=== PATIENT | male | born 1950 | race Caucasian/White ===

== ENCOUNTER → 2023-10-09 10:22 | Outpatient (REF) | payer OTHER, SELFPAY | LOC: HWRAD 10:22 | PROVIDERS: ATTENDING PHYSICIAN Family Medicine | DX: Z87.891 Personal history of nicotine dependence (principal) | CPT/HCPCS: 76770 ==

== ENCOUNTER 2024-03-22 09:29 | Emergency (ER) | payer OTHER, SELFPAY ==
[2024-03-22 09:32] VITALS: BP 127/73
--- NOTE | 2024-03-22 10:43 | ED.GENMED ---
History of Present Illness
<Debi Phelan PA-C - Last Filed: 03/23/24 12:02>
General
Chief Complaint: Swelling
Source: patient
Exam Limitations: none
Time Seen by Provider: 03/22/24 10:22
Nursing documentation reviewed up to this point in time: agreed with
History of Present Illness
History of Present Illness:
Patient is a 73 year old male with history hypertension, hyperlipidemia, diabetes presenting to the emergency department with left wrist pain for the past 3 days. Patient states that he was lifting heavy objects and moving things around on Thursday
in his garage and then began with wrist pain on Thursday night. He describes a relatively constant pain in his left wrist and left hand that is worse with movement and gradually worsening since onset. He denies any numbness/tingling in left hand or
digits.
Patient denies any associated fever, chills, nausea/vomiting. He states he otherwise feels well.
His was concerned about a possible infection.
Patient denies any history of gout.
Past History
<Debi Phelan PA-C - Last Filed: 03/23/24 12:02>
Past History
ED Past Medical History: HTN, Hypercholesterolemia and NIDDM (diet controlled)
ED Past Surgical History: Orthopedic and Tonsilectomy
Social History
Tobacco: Former smoker
Alcohol: None
Drug: None
Personal:
Living: with family
Review of Systems
<Debi Phelan PA-C - Last Filed: 03/23/24 12:02>
Review of Systems
Allergies reviewed?: Yes
All Other Systems: ROS reviewed and negative except as documented in HPI and ROS
Phy Exam
<Debi Phelan PA-C - Last Filed: 03/23/24 12:02>
Physical Exam
Physical Exam:
Vitals: Patient's vital signs are stable. Afebrile
General: Patient is well appearing, no acute distress. Nontoxic appearing.
Skin: Erythema and mild edema of left wrist at dorsal aspect - appears to be surrounding mild healing abrasion.
Head: Normocephalic, atraumatic
Eyes: Sclera nonicteric. EOMs intact. No nystagmus.
Throat: Protecting airway
Neck: Normal ROM, no cervical spine tenderness, no meningismus
Cardiac: Regular rate and rhythm, no murmurs.
Pulm: Normal respiratory effort, no wheezes, rales, rhonchi heard on exam.
Abdomen: No abdominal tenderness.
Extremities: Erythema and mild edema of left dorsal wrist. No induration of fluctuance. Patient has full ROM in left wrist with minimal pain. Palpable left radial pulse.
Neuro: AAOx3. Grossly intact.
Psychiatric: Normal affect.
Scores
<Debi Phelan PA-C - Last Filed: 03/23/24 12:02>
Heart Failure Risk
Heart Failure Risk Score: Not Applicable
Course
<Debi Phelan PA-C - Last Filed: 03/23/24 12:02>
Orders/Labs/Results
Orders:
Orders
03/22/24 09:35
Wrist, Left 3 Views CR [CR Wrist - Left Min 3 Views] Urgent
Comment:
Reason For Exam: pain and swelling
03/22/24 10:33
Hand, Left 3 View [CR Hand - Left Min 3 Views] Urgent
Comment:
Reason For Exam: atraumatic left hand pain/swelling
03/22/24 11:21
Amoxicillin 875 mg/Clav 125 mg [Augmentin 875 mg/125 mg] 1 tablet PO NOW STA
Doxycycline [Vibramycin] 100 mg PO NOW STA
03/22/24 11:22
Bedside Glucose- Treatment ONCE
Vital Signs
Initial and Last Documented VS:
Initial Vital Signs
Temp Pulse Resp BP Pulse Ox
98.2 F 89 18 127/73 96
03/22/24 09:32 03/22/24 09:32 03/22/24 09:32 03/22/24 09:32 03/22/24 09:32
Last Documented Vital Signs
Temp Pulse Resp BP Pulse Ox
98.3 F 80 16 115/72 98
03/22/24 11:51 03/22/24 11:51 03/22/24 11:51 03/22/24 11:51 03/22/24 11:51
<Rivas Harris MD - Last Filed: 03/22/24 11:29>
Orders/Labs/Results
Orders:
Orders
03/22/24 09:35
Wrist, Left 3 Views CR [CR Wrist - Left Min 3 Views] Urgent
Comment:
Reason For Exam: pain and swelling
03/22/24 10:33
Hand, Left 3 View [CR Hand - Left Min 3 Views] Urgent
Comment:
Reason For Exam: atraumatic left hand pain/swelling
03/22/24 11:21
Amoxicillin 875 mg/Clav 125 mg [Augmentin 875 mg/125 mg] 1 tablet PO NOW STA
Doxycycline [Vibramycin] 100 mg PO NOW STA
03/22/24 11:22
Bedside Glucose- Treatment ONCE
Vital Signs
Initial and Last Documented VS:
Initial Vital Signs
Temp Pulse Resp BP Pulse Ox
98.2 F 89 18 127/73 96
03/22/24 09:32 03/22/24 09:32 03/22/24 09:32 03/22/24 09:32 03/22/24 09:32
Last Documented Vital Signs
Temp Pulse Resp BP Pulse Ox
98.3 F 80 16 115/72 98
03/22/24 11:51 03/22/24 11:51 03/22/24 11:51 03/22/24 11:51 03/22/24 11:51
<Debi Phelan PA-C - Last Filed: 03/23/24 12:02>
MDM/Problems Addressed
Differential Diagnosis Includes:
Not limited to: cellulitis, inflammatory arthritis, septic arthritis, wrist sprain, doutb wrist fracture
MDM/Problems Addressed:
73 year old male with erythema and swelling of left dorsal wrist associated with mild pain. No fevers or chills. No known inciting injury. Vitals stable - patient afebrile. Physical exam as above. Xrays without any evidence of acute fracture.
Ultimately suspect cellulitis of left wrist. Feel septic arthritis is less likely given patient has full ROM and only very minimal pain. Did consider arthrocentesis although concern for introducing bacteria into joint space through clearly
cellulitic skin. POC glucose obtained and normal. Will start PO abx and give patient very close return precautions. Patient seen with attending physician.
Chronic conditions affecting care:
DM
Chronic conditions affecting care: DM
Acute Exacerbation and/or Progression of Chronic Illness:
N/A
<Debi Phelan PA-C - Last Filed: 03/23/24 12:02>
*Radiology
Radiology exam reviewed: preliminary read by ED provider (Xrays reviewed by me - no acute fracture)
*Pulse Oximetry
Patient hypoxic: no
*EKG
Interpreted by ED Provider?: NA
*Director Of Agriculture Interpretation
Rate: Director Of Agriculture- N/A
*Critical Care Note
Total Time (30-74mins, 75-104mins- exclusive of procedures): Not Applicable
ED Attending Note
<Debi Phelan PA-C - Last Filed: 03/23/24 12:02>
-
Portions of this chart may have been created with voice recognition software.� Occasional wrong word or��sound alike� substitutions may have occurred due to the inherent limitations of voice recognition software.
<Rivas Harris MD - Last Filed: 03/22/24 11:29>
ED Attending Note
Patient seen and examined by attending physician: Yes
ED Attending Note:
I have seen and evaluated the patient with a [id number] encounter. I have spoken to the advance practicer provider and involved in the medical history, the physical exam, medical decision making.
Evaluation and management service: agree unless noted differently below.
Results interpretation: agree unless noted differently below.
Focused HPI: 73-year-old male with history as documented notable for diabetes presents to the ER for evaluation of left forearm/wrist pain. Patient reports he was moving boxes on Thursday and he thinks he may have scraped his wrist he has a minor
abrasion on the distal forearm. He says that he started to have some redness the next day and then started to have pain yesterday and decided to come to the ER for evaluation. He says pain is most with palpation although he does have some pain
with range of motion. He denies any other complaints including fever or chills.
Physical exam: Awake alert no distress. Vital signs normal. Patient has erythema starting at the distal one third of the forearm it does extend towards the dorsum of the hand; he has a minor abrasion on the ulnar side of the distal forearm as well
as a minor abrasion on the dorsum of the hand; the area is warm and tender to the touch but no fluctuance or crepitus appreciated. He does not have a strong radial pulse. He does have full active range of motion of the right wrist with only mild
pain.
Medical Decision Makin-year-old male with history of diabetes presents with redness and swelling on the dorsum of the forearm/wrist on the left. Suspect that this is an acute cellulitis. Considered possibility of a septic arthritis but
patient's range of motion of the wrist is quite good and he has essentially minimal pain�very low suspicion for a septic arthritis clinically and I think that the risk of arthrocentesis through clearly cellulitic skin outweighs any diagnostic
benefit. Spoke to the patient and he agrees, we will start antibiotics. Very low threshold for return�skin was marked and patient understands that if he is worsening or symptoms are not improving after 2 to 3 days of antibiotics he needs to return
immediately. All questions answered.
Discharge Plan
Departure
Patient Disposition: Home (Routine Discharge)
Date of Disposition: 03/22/24
Time of Disposition:
Patient with high blood pressure during this ER visit?: No
Discharge Problem:
Cellulitis of forearm, left
Instructions: Cellulitis (skin infection) in adults - ED discharge instructions
Prescriptions:
New
amoxicillin-pot clavulanate 875-125 mg tablet
1 tab PO BID Qty: 14 0RF
doxycycline hyclate 100 mg tablet
100 mg PO BID Qty: 14 0RF
No Action
darifenacin [Enablex] 15 MG tablet extended release 24 hr
15 mg PO HS
desloratadine [Clarinex] 5 MG tablet
5 mg PO DAILY
amlodipine-benazepril 1 CAPSULE capsule
1 cap PO HS
rosuvastatin 20 MG tablet
20 mg PO HS
cetirizine 10 MG tablet
10 mg PO HS
docosahexaenoic acid-epa 1 CAP capsule
1 cap PO DAILY
aspirin 81 MG tablet
81 mg PO ONCE
Referrals:
Enrique Adam MD [Family Provider] - Follow up in 5-7 days
Activity Restrictions/Additional Instructions:
Thank you for visiting the Emergency Department at [facility].
1. Please schedule a follow up appointment as directed. Call first thing tomorrow morning to make an appointment.
2. If indicated, please take your medications as instructed and indicated on discharge paperwork.
3. If any of your symptoms do not improve, or persist, or become more severe within 6-12 hours, please return to the emergency department for further care.
4. Please return to the emergency department if you develop a headache, neck pain/stiffness, fever greater than 100.4F, chest pain, shortness of breath, persistent nausea, vomiting, slurred speech, difficulty walking, numbness/tingling, weakness,
signs of infection or any other symptoms that are worrisome to you.
Please call [phone] if you have any questions.
Interventions
Interventions:
*Risk Screen - Suicide Last Done: 03/22/24 09:32
*General Assessment Last Done: 03/22/24 09:32
*Neglect/Abuse Screening Last Done: 03/22/24 09:32
ED- Fall Risk Assessment Last Done: 03/22/24 11:46
*ED COVID-19 Vaccine History Last Done: 03/22/24 09:32
*Nursing Disposition Last Done: 03/22/24 11:52
ED- Cardiac Assessment Last Done: 03/22/24 11:46
ED- Pulmonary Assessment Last Done: 03/22/24 11:46
ED-Skin Assessment Last Done: 03/22/24 11:46
Discharge Date and Time
Discharge Date/Time: 03/22/24 11:52
Print Language: ESTONIAN
[2024-03-22 11:46] LABS: Glucose - Point of Care 99 mg/dl (70-99)
[2024-03-22] MEDS: AUGMENTIN 875 MG/125 MG 1 TABLET PO (11:46)
[2024-03-22] MEDS: VIBRAMYCIN 100 MG PO (11:46)
[2024-03-22 11:51] VITALS: BP 115/72
== END 2024-03-22 11:52 | disposition home or self-care (01) ==
LOC: EMR 09:29
PROVIDERS: EMERGENCY PHYSICIAN Emergency Medicine; FAMILY PHYSICIAN Family Medicine
DX: L03.114 Cellulitis of left upper limb (principal); I10 Essential (primary) hypertension; E78.00 Pure hypercholesterolemia, unspecified; E11.9 Type 2 diabetes mellitus without complications; Z87.891 Personal history of nicotine dependence
CPT/HCPCS: 99283; 73110; 73130; 82962

== ENCOUNTER → 2025-01-11 11:46 | Outpatient (REF) | payer OTHER, SELFPAY | LOC: REG 11:46 | PROVIDERS: ATTENDING PHYSICIAN Student in an Organized Health Care Education/Training Program; FAMILY PHYSICIAN Family Medicine | DX: Z48.89 Encounter for other specified surgical aftercare (principal) | CPT/HCPCS: 70030 ==